=== PATIENT | male | born 1995 | race Two or more races ===

== ENCOUNTER 2024-05-24 06:32 | Day surgery (SDC) | payer SELFPAY ==
[2024-05-17 17:08] VITALS: BMI 38.0
[2024-05-24] MEDS ORDERED: PROPOFOL 20 ML ONE ×3 (07:34→10:00)
[2024-05-24] MEDS ORDERED: SUCCINYLCHOLINE CHLORIDE 200 MG/10 ML SYRINGE ONE (07:35)
[2024-05-24] MEDS ORDERED: LIDOCAINE HCL 1%, 10 MG/ML (20ML VIAL) ONE (07:37)
[2024-05-24] MEDS ORDERED: MIDAZOLAM HCL 2 MG/2 ML SINGLE DOSE VIAL ONE (07:37)
[2024-05-24] MEDS ORDERED: EPINEPHrine 1:1000 P/F - 1 MG/ML AMP ONE (07:37)
[2024-05-24] MEDS ORDERED: ROCURONIUM BROMIDE 50 MG/5 ML SYRINGE ONE ×2 (07:38→08:31)
[2024-05-24] MEDS ORDERED: SUGAMMADEX SODIUM 200 MG/2 ML VIAL ONE ×2 (07:58→09:16)
[2024-05-24] MEDS ORDERED: DEXAMETHASONE SOD PHOSPHATE 4 MG/1 ML VIAL ONE (08:22)
[2024-05-24] MEDS ORDERED: ONDANSETRON 4 MG/2 ML VIAL ONE ×2 (08:22)
[2024-05-24] MEDS ORDERED: oxyCODONE HCL 5 MG TABLET PO PRN ×2 (11:08)
[2024-05-24] MEDS ORDERED: ONDANSETRON 4 MG/2 ML VIAL IVPB PRN (11:08)
[2024-05-24] MEDS ORDERED: LACTATED RINGERS SOLUTION 1,000 ML IV SCH (11:15)
[2024-05-24 12:27] VITALS: TEMP 97.1
[2024-05-24 12:43] VITALS: BP 140/90; PULSE 90; RESP 18
== END 2024-05-24 13:08 | disposition home or self-care (01) ==
LOC: FASU 06:32
PROVIDERS: ATTEND Plastic Surgery
PROC: 0J083ZZ Alteration of Abdomen Subcutaneous Tissue and Fascia, Percutaneous Approach (ICD-10-PCS; 2024-05-24)
PROC: 0J053ZZ Alteration of Left Neck Subcutaneous Tissue and Fascia, Percutaneous Approach (ICD-10-PCS; 2024-05-24)
PROC: 0J043ZZ Alteration of Right Neck Subcutaneous Tissue and Fascia, Percutaneous Approach (ICD-10-PCS; 2024-05-24)
PROC: 0J063ZZ Alteration of Chest Subcutaneous Tissue and Fascia, Percutaneous Approach (ICD-10-PCS; principal; 2024-05-24 08:34)
DX: E88.1 Lipodystrophy, not elsewhere classified (principal)
CPT/HCPCS: 94760